=== PATIENT | male | born 1980 | race African-American/Black ===

== ENCOUNTER 2017-01-12 01:41 | Emergency (ER) | payer SELFPAY ==
[2017-01-12] MEDS ORDERED: Bupivacaine 0.5% 10 ML VIAL ONE (02:00)
[2017-01-12] MEDS ORDERED: Acetaminophen/Codeine 30-300mg Tablet ONE (02:04)
== END 2017-01-12 02:14 | disposition home or self-care (01) ==
LOC: BURERS 01:41
DX: S02.5XXA Fracture of tooth (traumatic), initial encounter for closed fracture (principal); I10 Essential (primary) hypertension; F17.200 Nicotine dependence, unspecified, uncomplicated; X58.XXXA Exposure to other specified factors, initial encounter
CPT/HCPCS: 99282; J3490

== ENCOUNTER 2018-05-30 14:03 | Emergency (ER) | payer OTHER, SELFPAY ==
[2018-05-30] MEDS ORDERED: Lisinopril 20 MG TAB ONE (14:54)
== END 2018-05-30 14:57 | disposition home or self-care (01) ==
LOC: BURERS 14:03
DX: I10 Essential (primary) hypertension (principal); F17.290 Nicotine dependence, other tobacco product, uncomplicated; Z91.14 Patient's other noncompliance with medication regimen
CPT/HCPCS: 93005